=== PATIENT | male | born 1970 | race Two or more races ===

== ENCOUNTER 2019-06-03 11:22 | Emergency (ER) | payer MEDICAID ==
[~2019-06-03] VITALS: Ht 165.1 cm; Wt 52.2 kg
[2019-06-03 11:49] VITALS: BP 151/84
== END 2019-06-03 13:12 | disposition home or self-care (01) ==
LOC: ER 11:25
DX: S92.422A Displaced fracture of distal phalanx of left great toe, initial encounter for closed fracture (principal); X58.XXXA Exposure to other specified factors, initial encounter; Y93.89 Activity, other specified; Y92.89 Other specified places as the place of occurrence of the external cause; Y99.8 Other external cause status
CPT/HCPCS: 73660-TC